=== PATIENT | male | born 1975 | race Caucasian/White ===

== ENCOUNTER 2018-11-15 15:49 | Day surgery (SDC) | payer BC ==
[~2018-11-15 15:49] MED LIST: Lactated Ringers 1,000 ML IV SCH; Sodium Chloride 0.9% 10 ML SDV IV PRN; Sodium Chloride 0.9% 10 ML Syringe FLUSH PRN; Sodium Chloride 0.9% 2.5 ML Syringe FLUSH PRN; ceFAZolin 2 GM in Premix Bag 1 BAG IV ONE
--- NOTE | 2018-11-15 17:20 | PCM.PREANE ---
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 METS > 4. Cardiology workup negative, per patient.) Gastrointestinal: No Symptoms Neurological: No Symptoms Other: Reports: None, Liver Problems (Hep C positive) - Physical Assessment Vital Signs: Last Vital Signs Temp 36.8 C 11/15/18 16:54 Pulse 67 11/15/18 16:54 Resp 17 11/15/18 16:54 BP 123/74 11/15/18 16:54 Pulse Ox 94 L 11/15/18 16:54 Height: 5 ft 10 in Weight: 96.615 kg ASA Class: 2E Mental Status: Alert & Oriented x3 Dentition: Reports: Normal Dentition Thyro-Mental Finger Breadths: 3 Mouth Opening Finger Breadths: 3 ROM/Head Extension: Full Lungs: Clear to Auscultation, Normal Respiratory Effort Cardiovascular: Regular Rate, Regular Rhythm - Allergies Allergies/Adverse Reactions: Allergies Allergy/AdvReac Type Severity Reaction Status Date / Time No Known Allergies Allergy Verified 11/15/18 16:52 - Anesthesia Plan Free Text/Narrative:: GETA with RSI - Acknowledgements Anesthesia Type Planned: General Anesthesia Pt an Appropriate Candidate for the Planned Anesthesia: Yes Alternatives and Risks of Anesthesia Discussed w Pt/Guardian: Yes Pt/Guardian Understands and Agrees with Anesthesia Plan: Yes PreAnesthesia Questionnaire Cardiovascular History: Reports: High Cholesterol Gastrointestinal History: Reports: Hepatitis, Other (See Below) Other Gastrointestinal History: says has heartburn. hep C Genitourinary History: Reports: Renal Calculus - Infectious Disease History Infectious Disease History: Reports: Chicken Pox, Hepatitis C - Past Surgical History Cardiovascular Surgical History: Reports: None GI Surgical History: Reports: None Male Surgical History: Reports: None - SUBSTANCE USE Smoking Status *Q: Current Every Day Smoker Tobacco Use Within Last Twelve Months: Cigarettes Second Hand Smoke Exposure: No Days Per Week of Alcohol Use: 1 Number of Drinks Per Day: 2 Total Drinks Per Week: 2 Recreational Drug Use History: No - HOME MEDS Home Medications: Home Meds . [No Known Home Meds] 11/15/18 [History] - CURRENT (IN HOUSE) MEDS Current Meds: Current Medications Lactated Ringer's (Ringers, Lactated) 1,000 mls @ 100 mls/hr IV ASDIRECTED LOULOU Last Admin: 11/15/18 16:43 Dose: 100 mls/hr Sodium Chloride (Saline Flush) 10 ml FLUSH ASDIRECTED PRN PRN Reason: Keep Vein Open Sodium Chloride (Saline Flush) 2.5 ml FLUSH ASDIRECTED PRN PRN Reason: Keep Vein Open Sodium Chloride (Normal Saline) 10 ml IV ASDIRECTED PRN PRN Reason: IV Use Discontinued Medications Cefazolin Sodium/Dextrose 2 gm (/ Premix) 50 mls @ 100 mls/hr IV ONCALL ONE Stop: 11/15/18 15:20
[2018-11-15] MEDS ORDERED: Lidocaine 2% 100 MG/5 ML Syringe ONE ×2 (17:25→20:14)
[2018-11-15] MEDS ORDERED: Propofol 200 MG/20 ML SDV ONE ×2 (17:25→20:39)
[2018-11-15] MEDS ORDERED: Dexamethasone 4 MG/ML 5 ML MDV ONE (17:25)
[2018-11-15] MEDS ORDERED: Ketorolac 30 MG/ML SDV ONE (17:25)
[2018-11-15] MEDS ORDERED: Rocuronium 100 MG/10 ML Syringe ONE (17:25)
[2018-11-15] MEDS ORDERED: Ondansetron 4 MG/2 ML SDV ONE (17:25)
[2018-11-15] MEDS ORDERED: Famotidine 20 MG/2 ML SDV ONE (17:39)
[2018-11-15] MEDS ORDERED: Iopamidol 200-M 10 ML vial ITHECAL ONE (18:46)
[2018-11-15] MEDS ORDERED: Promethazine 25 MG/ML SDV IM ONE (19:01)
[2018-11-15] MEDS ORDERED: Metoclopramide 10 MG/2 ML SDV IVPUSH ONE (19:01)
[2018-11-15] MEDS ORDERED: fentaNYL 100 MCG/2 ML SDV ONE (20:17)
[2018-11-15] MEDS ORDERED: Belladonna Alkaloids/Opium 16.2-30 MG Supp RECTAL ONE (21:05)
[2018-11-15] MEDS: fentaNYL 100 MCG/2 ML SDV IVPUSH PRN ×2 (21:11→21:16)
--- NOTE | 2018-11-15 22:10 | PCM.POSTAN ---
POST ANESTHESIA ASSESSMENT - MENTAL STATUS Mental Status: Alert, Oriented - VITAL SIGNS Vital Signs: Last Vital Signs Temp 36.1 C 11/15/18 20:42 Pulse 57 L 11/15/18 21:29 Resp 17 11/15/18 21:29 BP 124/71 11/15/18 21:29 Pulse Ox 97 11/15/18 21:29 - RESPIRATORY Respiratory Status: Respiratory Rate WNL, Airway Patent, O2 Saturation Stable - CARDIOVASCULAR CV Status: Pulse Rate WNL, Blood Pressure Stable - GASTROINTESTINAL GI Status: No Symptoms - POST OP HYDRATION Hydration Status: Adequate & Stable
--- NOTE | 2018-11-16 02:29 | OR ---
SURGEON: Tia Eugene M.D. DATE OF PROCEDURE: 11/15/2018 PREOPERATIVE DIAGNOSIS: An 8 mm left mid ureteral stone. POSTOPERATIVE DIAGNOSIS: An 8 mm left mid ureteral stone. OPERATION: Left ureteroscopy, laser lithotripsy, and double-J stent placement. DESCRIPTION OF PROCEDURE: The patient was given general anesthesia. He was in the dorsal lithotomy position, prepped and draped in sterile drapes. Cystourethroscopy was done. A guidewire was advanced in the ureter all the way up to the stone, but would not go beyond the stone. A Glidewire was then advanced alongside the stone all the way up into the renal pelvis and that was secured to the side. Over the guidewire, I advanced the flexible ureteroscope all the way up to the stone and applied the laser to the stone. About fpc through, I decided to try the rigid ureteroscope and that was possible to bring it up to the stone. The rest of the job was completed, and all the stone was broken up into multitude of little tiny pieces. It was essentially a dusting operation. The largest piece of the stone was removed and pulled into the bladder. The stone in the renal pelvis was visualized as I advanced the flexible ureteroscope all the way up into the renal pelvis, but I could not snag it with the 0-tip basket, so I left it alone. With that done, I then placed a guidewire back into the ureter over which a 6-Nepali 26 centimeter double-J stent was placed. Position was confirmed on fluoroscopy. The bladder was emptied, and the string at the end of the stent was taped to the outside of the penis. The patient tolerated the procedure well and was moved to recovery room in good condition. DONNA / BAKARI /[id number]
--- NOTE | 2018-11-16 07:35 | PCM48HPAN ---
Post Anesthesia Note - EVALUATION WITHIN 48HRS OF ANESTHETIC Vital Signs in Normal Range: Yes Patient Participated in Evaluation: Yes Respiratory Function Stable: Yes Airway Patent: Yes Cardiovascular Function Stable: Yes Hydration Status Stable: Yes Pain Control Satisfactory: Yes Nausea and Vomiting Control Satisfactory: Yes Vital Signs: Last Vital Signs Temp 36.0 C 11/16/18 00:21 Pulse 68 11/16/18 00:21 Resp 14 11/16/18 00:21 BP 130/76 11/16/18 00:21 Pulse Ox 94 L 11/16/18 00:21
--- NOTE | 2018-11-16 13:23 | CR ---
INDICATION: Ureteroscopy. IMPRESSION: 32 seconds fluoro time. Two images. Please see urology notes for discussion. Dictated by uJs Cline MD @ Nov 16 2018 1:22PM Signed by Dr. Jus Cline @ Nov 16 2018 1:22PM
== END 2018-11-16 00:20 | disposition home or self-care (01) ==
LOC: MW.SDS 15:49 → MW.MS 15:56 → MW.SDS 11-16 00:20
PROVIDERS: ATTEND Urology
DX: N20.1 Calculus of ureter (principal); E78.00 Pure hypercholesterolemia, unspecified; F17.210 Nicotine dependence, cigarettes, uncomplicated
CPT/HCPCS: 52356; 88300; A9270; C1769; C2617; J0131; J0330; J1100; J1885; J2001; J2405; J2704; J3010; J7120; 00918; Q9966